=== PATIENT | female | born 1990 | race African-American/Black ===

== ENCOUNTER 2018-01-25 21:43 | Inpatient (IN) | payer OTHER ==
[2018-01-25] MEDS ORDERED: Carboprost Tromethamine 250 MCG/1 ML Amp IM PRN (22:30)
[2018-01-25] MEDS ORDERED: Methylergonovine 0.2 MG/1 ML Amp IM PRN (22:30)
[2018-01-25] MEDS ORDERED: Sodium Chloride 0.9% 2.5 ML Syringe FLUSH PRN (22:30)
[2018-01-25] MEDS ORDERED: Oxytocin/0.9 % Sodium Chloride 30 UNIT/500 ML BAG IV SCH (22:30)
[2018-01-25] MEDS ORDERED: Misoprostol 200 MCG Tab PO PRN (22:30)
[2018-01-25] MEDS ORDERED: Lidocaine 1% 50 ML MDV INJECT PRN (22:30)
[2018-01-25] MEDS ORDERED: Nalbuphine 10 MG/1 ML Vial IVPUSH PRN (22:30)
[2018-01-25] MEDS ORDERED: Water For Irrigation,Sterile 1,000 ML Container IRR PRN (22:30)
[2018-01-25] MEDS ORDERED: Sodium Chloride 0.9% 10 ML Syringe FLUSH PRN (22:30)
[2018-01-25] MEDS ORDERED: Butorphanol 1 MG/ML SDV IVPUSH PRN (22:30)
[2018-01-25] MEDS ORDERED: Tranexamic Acid 1,000 MG in Sodium Chloride 0.9% 100 ML IV PRN (22:30)
[2018-01-25] MEDS: Lactated Ringers 1,000 ML IV SCH ×2 (22:53→23:19)
[2018-01-26] MEDS ORDERED: Ropivacaine 0.2% 2 MG/ML 20 ML SDV ONE (00:08)
--- NOTE | 2018-01-26 00:44 | PCM.PREANE ---
Preanesthetic Assessment - Procedure Proposed Procedure: labor epidural - Anesthesia/Transfusion/Family Hx Anesthesia History: No Prior Anesthesia Family History of Anesthesia Reaction: No - Review of Systems Other: Reports: None - Physical Assessment Height: 5 ft 4 in Weight: 71.817 kg ASA Class: 2 Mental Status: Alert & Oriented x3 Airway Class: Mallampati = 1 Dentition: Reports: Normal Dentition Thyro-Mental Finger Breadths: 3 Mouth Opening Finger Breadths: 3 ROM/Head Extension: Full - Lab Values: Laboratory Last Values WBC 15.60 K/uL (4.0-11.0) H 01/25/18 22:40 RBC 5.03 M/uL (4.30-5.90) 01/25/18 22:40 Hgb 11.5 g/dL (12.0-16.0) L 01/25/18 22:40 Hct 34.8 % (36.0-46.0) L 01/25/18 22:40 MCV 69.2 fL (80.0-98.0) L 01/25/18 22:40 MCH 22.9 pg (27.0-32.0) L 01/25/18 22:40 MCHC 33.0 g/dL (31.0-37.0) 01/25/18 22:40 RDW Std Deviation 38.4 fl (28.0-62.0) 01/25/18 22:40 RDW Coeff of Britney 16 % (11.0-15.0) H 01/25/18 22:40 Plt Count 199 K/uL (150-400) 01/25/18 22:40 Nucleated RBC % 0.0 /100WBC 01/25/18 22:40 Nucleated RBCs # 0 K/uL 01/25/18 22:40 Blood Type B POSITIVE 01/25/18 22:40 Antibody Screen NEGATIVE 01/25/18 22:40 - Allergies Allergies/Adverse Reactions: Allergies Allergy/AdvReac Type Severity Reaction Status Date / Time No Known Allergies Allergy Verified 12/20/15 10:48 - Blood Blood Available: Yes Product(s) Available: PRBC - Acknowledgements Anesthesia Type Planned: Epidural Pt an Appropriate Candidate for the Planned Anesthesia: Yes Alternatives and Risks of Anesthesia Discussed w Pt/Guardian: Yes Pt/Guardian Understands and Agrees with Anesthesia Plan: Yes PreAnesthesia Questionnaire - Past Health History Medical/Surgical History: Denies 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: Hematologic History: Reports: Anemia, Other (See Below) Other Hematologic History: Takes Fe+ supplement daily for anemia - SUBSTANCE USE Smoking Status *Q: Current Some Day Smoker Second Hand Smoke Exposure: No Days Per Week of Alcohol Use: 4 Number of Drinks Per Day: 2 Total Drinks Per Week: 8 Recreational Drug Use History: Yes Recreational Drug Type: Reports: Marijuana/Hashish - HOME MEDS Home Medications: Home Meds Omeprazole Magnesium [Prilosec Otc] 20 mg PO DAILY 12/20/15 [History] Pantoprazole Sodium [Protonix] 40 mg PO DAILY #1 suspdr.pkt 12/20/15 [Rx] - CURRENT (IN HOUSE) MEDS Current Meds: Current Medications Butorphanol Tartrate (Stadol) 1 mg IVPUSH Q1H PRN PRN Reason: Pain Carboprost Tromethamine (Hemabate Ds) 250 mcg IM ASDIRECTED PRN PRN Reason: Post Hemorrhage Lactated Ringer's (Ringers, Lactated) 1,000 mls @ 150 mls/hr IV ASDIRECTED COUNTS INCLUDE 234 BEDS AT THE [facility] Last Admin: 01/25/18 23:19 Dose: 999 mls/hr Oxytocin/Sodium Chloride (Oxytocin 30 Unit/500 Ml-Ns) 30 unit in 500 mls @ 999 mls/hr IV ASDIRECTED COUNTS INCLUDE 234 BEDS AT THE [facility] Tranexamic Acid 1,000 mg/ (Sodium Chloride) 110 mls @ 660 mls/hr IV ONETIME PRN PRN Reason: Bleeding Lidocaine HCl (Xylocaine 1%) 50 ml INJECT .ONCE PRN PRN Reason: Laceration repair Methylergonovine Maleate (Methergine) 0.2 mg IM ASDIRECTED PRN PRN Reason: Post Hemorrhage Misoprostol (Cytotec) 200 mcg PO .ONCE PRN PRN Reason: Post Hemorrhage Nalbuphine HCl (Nubain) 10 mg IVPUSH Q1H PRN PRN Reason: Pain (severe 7-10) Sodium Chloride (Saline Flush) 10 ml FLUSH ASDIRECTED PRN PRN Reason: Keep Vein Open Sodium Chloride (Saline Flush) 2.5 ml FLUSH ASDIRECTED PRN PRN Reason: Keep Vein Open Sterile Water (Sterile Water For Irrigation) 1,000 ml IRR ASDIRECTED PRN PRN Reason: delivery Discontinued Medications Fentanyl/Bupivacaine HCl (Ezlwowfn-Vkqtx-Om 2 Mcg/Ml-0.125%) Confirm Administered Dose 100 mls @ as directed EP .STK-MED ONE Stop: 01/26/18 00:09 Ropivacaine (Naropin 0.2%) Confirm Administered Dose 20 ml .ROUTE .STK-MED ONE Stop: 01/26/18 00:09
[2018-01-26] MEDS: Lactated Ringers 1,000 ML IV SCH ×3 (01:15→10:03)
[2018-01-26] MEDS ORDERED: Carboprost Tromethamine 250 MCG/1 ML Amp IM PRN (05:40)
[2018-01-26] MEDS ORDERED: Nalbuphine 10 MG/1 ML Vial IVPUSH PRN (05:40)
[2018-01-26] MEDS ORDERED: Sodium Chloride 0.9% 2.5 ML Syringe FLUSH PRN (05:40)
[2018-01-26] MEDS ORDERED: Sodium Chloride 0.9% 10 ML Syringe FLUSH PRN (05:40)
[2018-01-26] MEDS ORDERED: Methylergonovine 0.2 MG/1 ML Amp IM PRN (05:40)
[2018-01-26] MEDS ORDERED: Butorphanol 1 MG/ML SDV IVPUSH PRN (05:40)
[2018-01-26] MEDS ORDERED: Misoprostol 200 MCG Tab PO PRN (05:40)
[2018-01-26] MEDS ORDERED: Water For Irrigation,Sterile 1,000 ML Container IRR PRN (05:40)
[2018-01-26] MEDS ORDERED: Tranexamic Acid 1,000 MG in Sodium Chloride 0.9% 100 ML IV PRN (05:40)
[2018-01-26] MEDS ORDERED: Lidocaine 1% 50 ML MDV INJECT PRN (05:40)
[2018-01-26] MEDS ORDERED: Oxytocin/0.9 % Sodium Chloride 30 UNIT/500 ML BAG IV SCH (05:45)
[2018-01-26] MEDS ORDERED: Lactated Ringers 1,000 ML IV SCH (05:45)
[2018-01-26] MEDS ORDERED: Ampicillin 2 GM in Sodium Chloride 0.9% 100 ML IV ONE (08:43)
[2018-01-26] MEDS ORDERED: Acetaminophen 500 MG Tab PO ONE (08:44)
[2018-01-26] MEDS ORDERED: Sodium Chloride 0.9% 100 ML ONE (08:47)
[2018-01-26] MEDS ORDERED: Ampicillin 2 GM AdvVial IV ONE (08:47)
[2018-01-26] MEDS ORDERED: Bisacodyl 10 MG Supp RECTAL PRN (09:40)
[2018-01-26] MEDS ORDERED: oxyCODONE 5 MG Tab PO PRN (09:40)
[2018-01-26] MEDS ORDERED: Acetaminophen 500 MG Tab PO PRN ×2 (09:40)
[2018-01-26] MEDS ORDERED: Docusate Sodium 100 MG Cap PO PRN (09:40)
[2018-01-26] MEDS ORDERED: Ibuprofen 800 MG Tab PO PRN (09:40)
[2018-01-26] MEDS ORDERED: Benzocaine/Menthol 20%-0.5% Spray 78 GM Cannister TOP PRN (09:40)
[2018-01-26] MEDS ORDERED: Witch Hazel Medicated Pads 40/Jar TOP PRN (09:40)
[2018-01-26] MEDS ORDERED: Ibuprofen 400 MG Tab PO PRN (09:40)
[2018-01-26] MEDS ORDERED: Lanolin 100% Cream 7 GM Tube TOP PRN (09:40)
--- NOTE | 2018-01-26 14:53 | OR ---
SURGEON: ROBY JOSHI DATE OF PROCEDURE: 01/26/2018 PREOPERATIVE DIAGNOSES: 1. This 27-year-old, 1, para 0 at 39 weeks 6 days, admitted in early labor. 2. Group B Streptococcus negative. 3. Chorioamnionitis. POSTOPERATIVE DIAGNOSES: 1. A 27-year-old 1, para 0 at 39 weeks 6 days, admitted in active labor. 2. Group B Streptococcus negative. 3. Chorioamnionitis. ESTIMATED BLOOD LOSS: 300 mL. ANESTHESIA: Epidural. FINDINGS: Live female delivered at 0900 hours. score 9 and 9, weight pending. Cord was noted around the neck and the left arm. EBL was 300 mL. Two - vessel cord noted. Perineum was intact. Weight Pending BRIEF HISTORY: The patient is a 27-year-old, G1, P0, at 39 weeks 6 days, who came in complaining of contractions. The patient was noted to be 5, 90, and -2. AROM was performed. During the labor course, the patient was noted to have occasional variable deceleration, which would resolve occasionally with the positional changes. The patient made adequate progress and became fully dilated. When the patient was fully dilated, she had a temperature of 101. She was given ampicillin, gentamycin, and Tylenol. PROCEDURE: With the patient being fully dilated, the patient was encouraged to push. With good pushing by the patient, the patient delivered head in direct OA position followed by the anterior and posterior shoulders, then the body was delivered. The was placed on the maternal abdomen. The cord was clamped and cut. The cord blood gases were obtained and the placenta was delivered via controlled cord traction. The perineum was then inspected again. The uterus was massaged. The IV Pitocin was running. Hemostasis was noted. All instrument and pad counts were correct x2. The infant was left with mother bonding in the labor room in stable condition. AIYANA SHEA /[id number]
[2018-01-27 05:51] VITALS: BP 115/69
--- NOTE | 2018-01-27 06:51 | PCM48HPAN ---
Post Anesthesia Note - EVALUATION WITHIN 48HRS OF ANESTHETIC Vital Signs in Normal Range: Yes Patient Participated in Evaluation: Yes Respiratory Function Stable: Yes Airway Patent: Yes Cardiovascular Function Stable: Yes Hydration Status Stable: Yes Pain Control Satisfactory: Yes Nausea and Vomiting Control Satisfactory: Yes Mental Status Recovered: Yes Resp Rate: 16
--- NOTE | 2018-01-27 08:49 | PCM.PNPP ---
- General Info Date of Service: 01/27/18 Admission Dx/Problem (Free Text): 27yo P1 s/p PPD 1 Subjective Update: Denies any complains , normal lochia Functional Status: Reports: Pain Controlled, Tolerating Diet, Ambulating, Urinating - Review of Systems General: Reports: No Symptoms HEENT: Reports: No Symptoms Pulmonary: Reports: No Symptoms Cardiovascular: Reports: No Symptoms Gastrointestinal: Reports: No Symptoms Genitourinary: Reports: No Symptoms Musculoskeletal: Reports: No Symptoms Skin: Reports: No Symptoms Neurological: Reports: No Symptoms Psychiatric: Reports: No Symptoms - General Info Date of Service: 01/27/18 - Patient Data Vital Signs - Most Recent: Last Vital Signs Temp 36.3 C 01/27/18 05:40 Pulse 61 01/27/18 05:40 Resp 16 01/27/18 06:50 BP 115/69 01/27/18 05:40 Pulse Ox 98 01/27/18 05:40 Weight - Most Recent: 71.817 kg Lab Results - Last 24 Hours: Laboratory Results - last 24 hr 01/27/18 Range/Units 05:50 Hgb 10.3 L (12.0-16.0) g/dL Hct 31.6 L (36.0-46.0) % Med Orders - Current: Current Medications Acetaminophen (Tylenol Extra Strength) 500 mg PO Q4H PRN PRN Reason: Pain Acetaminophen (Tylenol Extra Strength) 1,000 mg PO Q4H PRN PRN Reason: Pain Benzocaine/Menthol (Dermoplast Pain Relief 20%-0.5% [place]) 78 gm TOP ASDIRECTED PRN PRN Reason: Perineal Comfort Measure Last Admin: 01/26/18 15:53 Dose: 1 can Bisacodyl (Dulcolax) 10 mg RECTAL .ONCE PRN PRN Reason: Constipation Carboprost Tromethamine (Hemabate Ds) 250 mcg IM ASDIRECTED PRN PRN Reason: Post Hemorrhage Carboprost Tromethamine (Hemabate Ds) 250 mcg IM ASDIRECTED PRN PRN Reason: Post Hemorrhage Docusate Sodium (Colace) 100 mg PO BID PRN PRN Reason: Constipation Emollient Ointment (Lansinoh Hpa) 0 gm TOP ASDIRECTED PRN PRN Reason: Sore Nipples Lactated Ringer's (Ringers, Lactated) 1,000 mls @ 999 mls/hr IV ASDIRECTED [facility] Last Admin: 01/26/18 10:03 Dose: 999 mls/hr Oxytocin/Sodium Chloride (Oxytocin 30 Unit/500 Ml-Ns) 30 unit in 500 mls @ 999 mls/hr IV ASDIRECTED [facility] Last Admin: 01/26/18 09:02 Dose: 999 mls/hr Tranexamic Acid 1,000 mg/ (Sodium Chloride) 110 mls @ 660 mls/hr IV ONETIME PRN PRN Reason: Bleeding Tranexamic Acid 1,000 mg/ (Sodium Chloride) 110 mls @ 660 mls/hr IV ONETIME PRN PRN Reason: Bleeding Lactated Ringer's (Ringers, Lactated) 1,000 mls @ 150 mls/hr IV ASDIRECTED [facility] Oxytocin/Sodium Chloride (Oxytocin 30 Unit/500 Ml-Ns) 30 unit in 500 mls @ 999 mls/hr IV TITRATE [facility] Ibuprofen (Motrin) 400 mg PO Q4H PRN PRN Reason: Pain Ibuprofen (Motrin) 800 mg PO Q6H PRN PRN Reason: Pain Lidocaine HCl (Xylocaine 1%) 50 ml INJECT .ONCE PRN PRN Reason: Laceration repair Lidocaine HCl (Xylocaine 1%) 50 ml INJECT .ONCE PRN PRN Reason: Laceration repair Methylergonovine Maleate (Methergine) 0.2 mg IM ASDIRECTED PRN PRN Reason: Post Hemorrhage Methylergonovine Maleate (Methergine) 0.2 mg IM ASDIRECTED PRN PRN Reason: Post Hemorrhage Misoprostol (Cytotec) 200 mcg PO .ONCE PRN PRN Reason: Post Hemorrhage Misoprostol (Cytotec) 200 mcg PO .ONCE PRN PRN Reason: Post Hemorrhage Nalbuphine HCl (Nubain) 10 mg IVPUSH Q1H PRN PRN Reason: Pain (severe 7-10) Oxycodone HCl (Oxycodone) 5 mg PO Q2H PRN PRN Reason: Pain Sodium Chloride (Saline Flush) 10 ml FLUSH ASDIRECTED PRN PRN Reason: Keep Vein Open Sodium Chloride (Saline Flush) 2.5 ml FLUSH ASDIRECTED PRN PRN Reason: Keep Vein Open Sodium Chloride (Saline Flush) 10 ml FLUSH ASDIRECTED PRN PRN Reason: Keep Vein Open Sodium Chloride (Saline Flush) 2.5 ml FLUSH ASDIRECTED PRN PRN Reason: Keep Vein Open Sterile Water (Sterile Water For Irrigation) 1,000 ml IRR ASDIRECTED PRN PRN Reason: delivery Last Admin: 01/26/18 08:55 Dose: 1,000 ml Sterile Water (Sterile Water For Irrigation) 1,000 ml IRR ASDIRECTED PRN PRN Reason: delivery Tito Odonnell (Tucks) 1 pad TOP ASDIRECTED PRN PRN Reason: comfort care Discontinued Medications Acetaminophen (Tylenol Extra Strength) 1,000 mg PO ONETIME ONE Stop: 01/26/18 08:45 Last Admin: 01/26/18 08:57 Dose: 1,000 mg Ampicillin Sodium (Ampicillin) Confirm Administered Dose 2 gm IV .STK-MED ONE Stop: 01/26/18 08:48 Last Admin: 01/26/18 18:26 Dose: Not Given Butorphanol Tartrate (Stadol) 1 mg IVPUSH Q1H PRN PRN Reason: Pain Butorphanol Tartrate (Stadol) 1 mg IVPUSH Q1H PRN PRN Reason: Pain Fentanyl/Bupivacaine HCl (Hoakplzb-Eqhmr-Cn 2 Mcg/Ml-0.125%) Confirm Administered Dose 100 mls @ as directed EP .STK-MED ONE Stop: 01/26/18 00:09 Last Admin: 01/26/18 18:19 Dose: Not Given Ampicillin Sodium 2 gm/ Sodium (Chloride) 100 mls @ 200 mls/hr IV ONETIME ONE Stop: 01/26/18 09:12 Last Admin: 01/26/18 08:57 Dose: 200 mls/hr Gentamicin Sulfate 100 mg/ (Sodium Chloride) 52.5 mls @ 100 mls/hr IV ONETIME ONE Stop: 01/26/18 10:31 Last Admin: 01/26/18 10:01 Dose: 100 mls/hr Sodium Chloride (Normal Saline) Confirm Administered Dose 100 mls @ as directed .ROUTE .STK-MED ONE Stop: 01/26/18 08:48 Last Admin: 01/26/18 18:26 Dose: Not Given Nalbuphine HCl (Nubain) 10 mg IVPUSH Q1H PRN PRN Reason: Pain (severe 7-10) Ropivacaine (Naropin 0.2%) Confirm Administered Dose 20 ml .ROUTE .STK-MED ONE Stop: 01/26/18 00:09 Last Admin: 01/26/18 18:20 Dose: Not Given - Infant Interaction Disposition, : at Bedside Support Person: - Recovery Exam Fundal Tone: Firm Fundal Level: 1 Fingerbreadths Below Umbilicus Fundal Placement: Midline Lochia Amount: Scant Lochia Color: Rubra/Red Perineum Description: Intact, Minimal Bruising/Swelling Episiotomy/Laceration: None Bladder Status: Voiding - Exam General: Alert HEENT: Pupils Equal Neck: Supple Lungs: Clear to Auscultation Cardiovascular: Regular Rate, Regular Rhythm GI/Abdominal Exam: Normal Bowel Sounds Extremities: Normal Inspection Psy/Mental Status: Alert - Problem List & Annotations (1) Vaginal delivery SNOMED Code(s): 303985229 Code(s): O80 - ENCOUNTER FOR FULL-TERM UNCOMPLICATED DELIVERY Status: Acute Current Visit: Yes - Problem List Review Problem List Initiated/Reviewed/Updated: Yes - My Orders Last 24 Hours: My Active Orders 01/26/18 09:40 Patient Status [ADT] Routine May Shower [RC] ASDIRECTED Up ad Alix [RC] ASDIRECTED Vital Signs [RC] PER UNIT ROUTINE Acetaminophen [Tylenol Extra Strength] 1,000 mg PO Q4H PRN Acetaminophen [Tylenol Extra Strength] 500 mg PO Q4H PRN Benzocaine/Menthol [Dermoplast Pain Relief 20%-0.5% [place]] 78 gm TOP ASDIRECTED PRN Bisacodyl [Dulcolax] 10 mg RECTAL .ONCE PRN Docusate Sodium [Colace] 100 mg PO BID PRN Ibuprofen [Motrin] 400 mg PO Q4H PRN Ibuprofen [Motrin] 800 mg PO Q6H PRN Lanolin [Lansinoh HPA] See Dose Instructions TOP ASDIRECTED PRN [place] [Tucks] 1 pad TOP ASDIRECTED PRN oxyCODONE 5 mg PO Q2H PRN Assess Lochia [WOMSER] Per Unit Routine Assess Uterine Involution [WOMSER] Per Unit Routine Peripheral IV Discontinue [OM.PC] Routine Resuscitation Status Routine 01/26/18 Lunch Regular Diet [DIET] - Assessment Assessment:: 27 yo P1 s/p PPD1 - Plan Plan:: Discharge home Continue PNV Pain control with OTC tylenol and motrin
== END 2018-01-27 12:55 | disposition home or self-care (01) | DRG 774 ==
LOC: MW.OBCHECK 21:43 → MW.OB 21:48 → MW.OBCHECK 22:29 → MW.OB 22:30 → OBSVTOIN 01-26 09:00 → MW.OB 01-26 19:38
PROVIDERS: ADMIT Obstetrics & Gynecology; ATTEND Obstetrics & Gynecology
PROC: 10E0XZZ Delivery of Products of Conception, External Approach (ICD-10-PCS; principal; 2018-01-26)
PROC: 10907ZC Drainage of Amniotic Fluid, Therapeutic from Products of Conception, Via Natural or Artificial Opening (ICD-10-PCS; 2018-01-26)
DX: O41.1230 Chorioamnionitis, third trimester, not applicable or unspecified (principal); O75.2 Pyrexia during labor, not elsewhere classified; O69.1XX0 Labor and delivery complicated by cord around neck, with compression, not applicable or unspecified; Z3A.39 39 weeks gestation of pregnancy; Z37.0 Single live birth
CPT/HCPCS: 01967-QZ; 36415; 51702; 59025; 59409; 85014; 85018; 85027; 86850; 86900; 86901; A9270-GY; J0290; J1580; J2590; J7030; J7050; J7120

== ENCOUNTER 2019-07-23 06:34 | Day surgery (SDC) | payer OTHER ==
[2019-07-23] MEDS ORDERED: ceFAZolin 1 GM in Premix Bag 1 BAG IV SCH (07:00)
[2019-07-23] MEDS ORDERED: Lactated Ringers 1,000 ML IV SCH ×2 (07:00→09:15)
[2019-07-23] MEDS ORDERED: ceFAZolin 1 GM Vial ONE ×2 (07:14→10:11)
[2019-07-23] MEDS ORDERED: Bupivacaine 0.5% 30 ML SDV ONE (07:15)
--- NOTE | 2019-07-23 07:24 | PCM.PREANE ---
Preanesthetic Assessment - Anesthesia/Transfusion/Family Hx Anesthesia History: No Prior Anesthesia Other Type of Anesthesia Reaction Comment: pt adopted, unsure of family hx Transfusion History: No Prior Transfusion(s) - Review of Systems General: No Symptoms Pulmonary: No Symptoms Cardiovascular: No Symptoms Gastrointestinal: No Symptoms Neurological: No Symptoms Other: Reports: None - Physical Assessment Vital Signs: Last Vital Signs Temp 97.0 F 07/23/19 06:46 Pulse 77 07/23/19 06:46 Resp 14 07/23/19 06:46 BP 107/62 07/23/19 06:46 Pulse Ox 99 07/23/19 06:46 Height: 5 ft 5 in Weight: 62.596 kg ASA Class: 1 Mental Status: Alert & Oriented x3 Airway Class: Mallampati = 1 Dentition: Reports: Normal Dentition ROM/Head Extension: Full Lungs: Clear to Auscultation, Normal Respiratory Effort Cardiovascular: Regular Rate, Regular Rhythm - Lab Values: Laboratory Last Values Urine HCG, Qual NEGATIVE (NEGATIVE) 07/23/19 06:37 - Allergies Allergies/Adverse Reactions: Allergies Allergy/AdvReac Type Severity Reaction Status Date / Time No Known Allergies Allergy Verified 07/20/19 07:49 - Blood Blood Available: No - Anesthesia Plan Pre-Op Medication Ordered: None - Acknowledgements Anesthesia Type Planned: General Anesthesia Pt an Appropriate Candidate for the Planned Anesthesia: Yes Alternatives and Risks of Anesthesia Discussed w Pt/Guardian: Yes Pt/Guardian Understands and Agrees with Anesthesia Plan: Yes Additional Comments: Anes prob list: none PLAN: ga/lma PreAnesthesia Questionnaire - Past Health History Medical/Surgical History: Denies Medical/Surgical History Gastrointestinal History: Reports: Other (See Below) Other Gastrointestinal History: occasional heartburn 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 [No Known Home Meds] 07/20/19 [History] - CURRENT (IN HOUSE) MEDS Current Meds: Current Medications Cefazolin Sodium/Dextrose 1 gm (/ Premix) 25 mls @ 100 mls/hr IV ONETIME KEN Lactated Ringer's (Ringers, Lactated) 1,000 mls @ 125 mls/hr IV ASDIRECTED [facility] Last Admin: 07/23/19 06:52 Dose: 125 mls/hr Discontinued Medications Bupivacaine HCl (Marcaine 0.5%) Confirm Administered Dose 30 ml .ROUTE .STK-MED ONE Stop: 07/23/19 07:16 Cefazolin Sodium (Ancef) Confirm Administered Dose 1 gm .ROUTE .STK-MED ONE Stop: 07/23/19 07:15
[2019-07-23] MEDS ORDERED: Midazolam 1 MG/ML 2 ML SDV ONE (07:30)
[2019-07-23] MEDS ORDERED: Propofol 200 MG/20 ML SDV ONE (07:30)
[2019-07-23] MEDS ORDERED: fentaNYL 100 MCG/2 ML SDV ONE ×2 (07:30→08:09)
[2019-07-23] MEDS ORDERED: Lidocaine 2% 5 ML SDV ONE (07:30)
[2019-07-23] MEDS ORDERED: Rocuronium 100 MG/10 ML Syringe ONE (07:31)
[2019-07-23] MEDS ORDERED: Meperidine PF 25 MG/ML Syringe IV PRN (08:14)
[2019-07-23] MEDS ORDERED: fentaNYL 100 MCG/2 ML SDV IVPUSH PRN (08:15)
[2019-07-23] MEDS ORDERED: Promethazine 25 MG/ML SDV IM PRN (08:15)
[2019-07-23] MEDS ORDERED: Neostigmine Methylsulfate 1 MG/ML 5 ML Syringe ONE (08:18)
[2019-07-23] MEDS ORDERED: Ondansetron 4 MG/2 ML SDV ONE (08:18)
[2019-07-23] MEDS ORDERED: Glycopyrrolate 0.2 MG/ML SDV ONE (08:18)
[2019-07-23] MEDS ORDERED: Dexamethasone 4 MG/ML 5 ML MDV ONE (08:18)
[2019-07-23] MEDS ORDERED: Ketorolac 30 MG/ML SDV ONE (08:41)
[2019-07-23] MEDS ORDERED: Acetaminophen/HYDROcodone 325-5 MG Tab PO PRN (09:05)
[2019-07-23] MEDS ORDERED: Morphine 10 MG/ML Syringe IVPUSH PRN (09:05)
[2019-07-23] MEDS ORDERED: Ondansetron 4 MG/2 ML SDV IVPUSH PRN (09:05)
--- NOTE | 2019-07-23 09:11 | PCM.OPNOTE ---
- General Post-Op/Procedure Note Date of Surgery/Procedure: 07/23/19 Operative Procedure(s): Excision right round ligament cyst. Repair right inguinal hernia. Pre Op Diagnosis: Right inguinal hernia. Post-Op Diagnosis: Right groin mass. Right inguinal hernia. Anesthesia Technique: General ET Tube (ASA I) Primary Surgeon: Albert Guevara Fluid Replacement, Intraop: 900 EBL in mLs: 7 Condition: Good Free Text/Narrative:: DICTATION 590352 CPT CODE 72018
--- NOTE | 2019-07-23 09:23 | PCM.POSTAN ---
POST ANESTHESIA ASSESSMENT - MENTAL STATUS Mental Status: Alert, Oriented - VITAL SIGNS Vital Signs: Last Vital Signs Temp 36.1 C 07/23/19 06:46 Pulse 77 07/23/19 06:46 Resp 14 07/23/19 06:46 BP 107/62 07/23/19 06:46 Pulse Ox 99 07/23/19 06:46 - RESPIRATORY Respiratory Status: Respiratory Rate WNL, Airway Patent, O2 Saturation Stable - CARDIOVASCULAR CV Status: Pulse Rate WNL, Blood Pressure Stable - GASTROINTESTINAL GI Status: No Symptoms - POST OP HYDRATION Hydration Status: Adequate & Stable
--- NOTE | 2019-07-23 09:40 | PCM.POSTAN ---
POST ANESTHESIA ASSESSMENT - MENTAL STATUS Mental Status: Oriented - VITAL SIGNS Vital Signs: Last Vital Signs Temp 36.9 C 07/23/19 08:57 Pulse 70 07/23/19 09:32 Resp 13 07/23/19 09:32 BP 109/62 07/23/19 09:32 Pulse Ox 96 07/23/19 09:32 - RESPIRATORY Respiratory Status: Respiratory Rate WNL, Airway Patent, O2 Saturation Stable - CARDIOVASCULAR CV Status: Pulse Rate WNL, Blood Pressure Stable - GASTROINTESTINAL GI Status: No Symptoms - PAIN Pain Score: 2 (Resting) - POST OP HYDRATION Hydration Status: Adequate & Stable - OBSERVATIONS Free Text/Narrative:: Doing well. VSS. Adequate for transfer to phase 2.
--- NOTE | 2019-07-23 10:26 | PCM48HPAN ---
Post Anesthesia Note - EVALUATION WITHIN 48HRS OF ANESTHETIC Vital Signs in Normal Range: Yes Patient Participated in Evaluation: Yes Respiratory Function Stable: Yes Airway Patent: Yes Cardiovascular Function Stable: Yes Hydration Status Stable: Yes Pain Control Satisfactory: Yes Nausea and Vomiting Control Satisfactory: Yes Mental Status Recovered: Yes Vital Signs: Last Vital Signs Temp 98.4 F 07/23/19 09:41 Pulse 66 07/23/19 09:55 Resp 14 07/23/19 09:55 BP 113/71 07/23/19 09:55 Pulse Ox 99 07/23/19 09:55
[2019-07-23 10:53] VITALS: BP 104/61; PULSE 88
--- NOTE | 2019-07-23 13:25 | OR ---
SURGEON: Albert Guevara M.D. DATE OF PROCEDURE: 07/23/2019 OPERATION PERFORMED: Exploration of right groin with removal of right groin cyst and repair of right inguinal hernia. PRIMARY SURGEON: Albert Guevara M.D. ANESTHESIA: General endotracheal. ASA CLASSIFICATION: I. PREOPERATIVE DIAGNOSIS: Right inguinal mass, probable right inguinal hernia. POSTOPERATIVE DIAGNOSIS: Right inguinal cyst with small right indirect inguinal hernia. ESTIMATED BLOOD LOSS: 7 mL. INTRAOPERATIVE FLUID REPLACEMENT: 900 mL of crystalloid. DESCRIPTION OF PROCEDURE: The patient was taken to the operating room and placed on the operating table in the supine position. Time-out was called for appropriate identification of the patient and procedure. Sequential compression boots were placed. Following satisfactory attainment of general endotracheal anesthesia, the abdomen was prepped with DuraPrep solution. Sterile drapes were applied. Skin incision and surgical site had been marked prior to the patient entering the operating room. The skin was now infiltrated with 10 mL of 0.5% Marcaine solution. The skin incision was made directly over the mass and deepened through the subcutaneous tissue obtaining hemostasis with the use of electrocautery. The external oblique was opened in the direction of its fibers and the cystic mass was identified. Using a combination of sharp and blunt dissection, the mass was mobilized. Small bleeding sites were electrocoagulated. The mass appeared to be emanating from the internal ring. Dissection was carried down to the internal ring and what appeared to be the cystic structure was entered. This did appear to be coming off the round ligament. The round ligament was then clamped and the specimen was removed. The round ligament was then ligated with 2-0 silk suture. No other bleeding was noted. The wound was inspected for hemostasis and no other masses were noted, and there was no other bleeding. The floor of the right inguinal canal was repaired with multiple interrupted 0 Ethibond sutures beginning medially suturing transversalis fascia to Min's ligament and transitioning to the inguinal ligament. All sutures were placed under direct vision and held with hemostats until the final suture had been placed. After the sutures were placed and tied, the patient was given a Valsalva maneuver to 40 cm of water. The repair was solid. The wound was again inspected for hemostasis and no bleeding was noted. The wound was then irrigated with 1% Ancef solution. The external oblique was then reapproximated with 3-0 Vicryl. Stew's fascia was reapproximated with 3-0 Vicryl and the skin edges were reapproximated with subcuticular 4-0 Monocryl reinforced with half-inch Steri-Strips. Sterile Tegaderm pad was placed as a dressing. Sponge, needle, and instrument counts were all correct. Following emergence from anesthesia and extubation, the patient was taken to recovery room in stable condition. RAIZA SHEA /[id number]
== END 2019-07-23 11:05 | disposition home or self-care (01) ==
LOC: MW.SDS 06:34
PROVIDERS: ATTEND Surgery
DX: K40.90 Unilateral inguinal hernia, without obstruction or gangrene, not specified as recurrent (principal); R19.03 Right lower quadrant abdominal swelling, mass and lump; K21.9 Gastro-esophageal reflux disease without esophagitis
CPT/HCPCS: 49505; 81025; 88302; J0690; J1100; J1885; J2001; J2175; J2250; J2405; J2704; J3010; J3490; J7120; 00830

== ENCOUNTER 2022-02-07 10:25 | Inpatient (IN) | payer OTHER ==
[2022-02-07] MEDS ORDERED: Tranexamic Acid 1,000 MG in Sodium Chloride 0.9% 100 ML IV PRN ×2 (10:54→15:23)
[2022-02-07] MEDS ORDERED: Sodium Chloride 0.9% 10 ML Syringe FLUSH PRN (10:54)
[2022-02-07] MEDS ORDERED: Carboprost Tromethamine 250 MCG/1 ML Amp IM PRN (10:54)
[2022-02-07] MEDS ORDERED: Butorphanol 1 MG/ML SDV IVPUSH PRN (10:54)
[2022-02-07] MEDS ORDERED: Methylergonovine 0.2 MG/1 ML Amp IM PRN ×2 (10:54→15:23)
[2022-02-07] MEDS ORDERED: Sodium Chloride 0.9% 2.5 ML Syringe FLUSH PRN (10:54)
[2022-02-07] MEDS ORDERED: Water For Irrigation,Sterile 1,000 ML Container IRR PRN (10:54)
[2022-02-07] MEDS ORDERED: Sodium Chloride 0.9% 20 ML SDV IV PRN (10:54)
[2022-02-07] MEDS ORDERED: Lidocaine 1% 50 ML MDV INJECT PRN (10:54)
[2022-02-07] MEDS ORDERED: Misoprostol 200 MCG Tab PO PRN (10:54)
[2022-02-07] MEDS: Lactated Ringers 1,000 ML IV SCH ×2 (10:55→12:00)
[2022-02-07] MEDS ORDERED: Oxytocin/0.9 % Sodium Chloride 30 UNIT/500 ML BAG IV SCH (11:00)
[2022-02-07] MEDS ORDERED: Ropivacaine 100 ML ONE ×2 (11:34→12:00)
[2022-02-07] MEDS ORDERED: ePHEDrine 50 MG/ML SDV IVPUSH PRN (12:18)
[2022-02-07] MEDS ORDERED: Ropivacaine 200 MG in Premix Bag 1 BAG EPIDUR SCH (12:30)
[2022-02-07] MEDS ORDERED: Bisacodyl 10 MG Supp RECTAL PRN (15:23)
[2022-02-07] MEDS ORDERED: Ibuprofen 400 MG Tab PO PRN (15:23)
[2022-02-07] MEDS ORDERED: Witch Hazel Medicated Pads 40/Jar TOP PRN (15:23)
[2022-02-07] MEDS ORDERED: Benzocaine/Menthol 20%-0.5% Spray 78 GM Cannister TOP PRN (15:23)
[2022-02-07] MEDS ORDERED: Lanolin 100% Cream 7 GM Tube TOP PRN (15:23)
[2022-02-07] MEDS ORDERED: Acetaminophen 500 MG Tab PO PRN ×2 (15:23)
[2022-02-07] MEDS ORDERED: Docusate Sodium 100 MG Cap PO PRN (15:23)
[2022-02-07] MEDS: Ibuprofen 800 MG Tab PO PRN (19:36)
[2022-02-08] MEDS: Ibuprofen 800 MG Tab PO PRN (03:17)
[2022-02-08 20:22] VITALS: BP 110/61; PULSE 76
[2022-02-09] MEDS ORDERED: ePHEDrine 50 MG/ML SDV ONE (10:18)
[2022-02-09] MEDS ORDERED: Propofol 200 MG/20 ML SDV ONE (10:18)
[2022-02-09] MEDS ORDERED: Rocuronium Bromide 50 MG/5 ML Syringe ONE (10:18)
[2022-02-09] MEDS ORDERED: Succinylcholine/Sod PF 100 MG/5 ML SYRINGE IV ONE (10:18)
== END 2022-02-08 17:48 | disposition home or self-care (01) | DRG 807 ==
LOC: MW.OBCHECK 10:25 → MW.OB 10:27 → MW.OBCHECK 10:55 → OBSVTOIN 15:05 → MW.OB 21:06
PROVIDERS: ADMIT Obstetrics & Gynecology; ATTEND Obstetrics & Gynecology
PROC: 10E0XZZ Delivery of Products of Conception, External Approach (ICD-10-PCS; principal; 2022-02-07)
PROC: 0KQM0ZZ Repair Perineum Muscle, Open Approach (ICD-10-PCS; 2022-02-07)
PROC: 3E0R3BZ Introduction of Anesthetic Agent into Spinal Canal, Percutaneous Approach (ICD-10-PCS; 2022-02-07)
PROC: 00HU33Z Insertion of Infusion Device into Spinal Canal, Percutaneous Approach (ICD-10-PCS; 2022-02-07)
DX: O69.81X0 Labor and delivery complicated by cord around neck, without compression, not applicable or unspecified (principal); Z37.0 Single live birth; Z3A.39 39 weeks gestation of pregnancy; O70.1 Second degree perineal laceration during delivery; O77.0 Labor and delivery complicated by meconium in amniotic fluid
CPT/HCPCS: 36415; 51702; 59025; 59409; 82803; 85014; 85018; 85027; 86592; 86850; 86900; 86901; A9270-GY; J2590; J2795; J7120